=== PATIENT | male | born 1970 | race Caucasian/White ===

== ENCOUNTER 2021-07-23 21:03 | Emergency (ER) | payer OTHER ==
[2021-07-23] MEDS ORDERED: Boostrix 0.5 ML (Tdap) VIAL ONE (21:59)
[2021-07-23] MEDS ORDERED: HYDROcodone/Acetaminophen 5/325 mg Tablet ONE (22:41)
== END 2021-07-23 23:18 | disposition home or self-care (01) ==
LOC: CSHERS 21:03
DX: S52.121A Displaced fracture of head of right radius, initial encounter for closed fracture (principal); I25.10 Atherosclerotic heart disease of native coronary artery without angina pectoris; E78.5 Hyperlipidemia, unspecified; W01.0XXA Fall on same level from slipping, tripping and stumbling without subsequent striking against object, initial encounter
CPT/HCPCS: 90715